=== PATIENT | male | born 1985 | race Caucasian/White ===

== ENCOUNTER → 2018-06-03 | Day surgery (SDC) | payer OTHER ==
[~2018-06-03] VITALS: Ht 188 cm; Wt 80.9 kg
[~2018-06-03] MED LIST: VIVLODEX10 MG PO
[2018-06-03 10:27] VITALS: BP 105/74; PULSE 71; TEMP 96.9
[2018-06-03 11:35] VITALS: BP 107/73; PULSE 73; TEMP 97
--- NOTE | 2018-06-03 11:35 | NUR ---
Patient returned back to [facility], alert and oriented. Vital signs obtained, WNL. Ambulated to chair without difficulty. Denies any pain or nausea. Is requesting coffee, soda, muffin, cracker, and pudding. Tolerating well. Call mcgregor within reach, Megan at bedside. Will continue to monitor.
[2018-06-03 11:50] VITALS: BP 114/84; PULSE 68
--- NOTE | 2018-06-03 11:50 | NUR ---
Patient is tolerating food and drink without difficulty. States he is feeling well. Vital signs stable. Will continue to monitor.
[2018-06-03 12:05] VITALS: BP 106/72; PULSE 71
--- NOTE | 2018-06-03 12:05 | NUR ---
Patient states that he is feeling well and ready to go home. Vital signs stable. Tolerating food and drink well. j
--- NOTE | 2018-06-03 12:40 | NUR ---
Discharge instructions reviewed with patient and . All questions answered. IV removed per orders. Patient to get dressed.
--- NOTE | 2018-06-03 12:48 | NUR ---
Patient wheeled down to lobby. To be driven home by .
== END ==
LOC: SDCO 09:48
DX: R19.4 Change in bowel habit (principal); R93.5 Abnormal findings on diagnostic imaging of other abdominal regions, including retroperitoneum; M54.9 Dorsalgia, unspecified
CPT/HCPCS: OP; J2250; J3010; J7030

== ENCOUNTER 2020-07-10 21:04 | Emergency (ER) | payer BC, OTHER ==
[~2020-07-10] VITALS: Ht 188 cm; Wt 77.3 kg
[2020-07-10 21:11] VITALS: BP 125/87; TEMP 98
[2020-07-10] MEDS ORDERED: ULTRAM 50MG TAB50 MG PO (21:20)
[2020-07-10] MEDS ORDERED: CEPHALEXIN500 M1 PO (21:51)
[2020-07-10 21:55] VITALS: PULSE 92
== END 2020-07-10 21:57 | disposition home or self-care (01) ==
LOC: COL.ER 21:04
DX: K13.0 Diseases of lips (principal)

== ENCOUNTER → 2020-07-12 | Outpatient (CLI) | payer BC, OTHER ==
[~2020-07-12] MED LIST changes: +CEPHALEXIN500 M1 PO; +ULTRAM 50MG TAB50 MG PO
== END ==
LOC: ZCOL.LAB 18:24
DX: L02.02 Furuncle of face (principal); Z79.899 Other long term (current) drug therapy